=== PATIENT | female | born 1955 | race Asian ===

== ENCOUNTER 2017-04-28 16:25 | Emergency (ER) | payer MEDICAID ==
[~2017-04-28] VITALS: Ht 149.9 cm; Wt 54.5 kg
[2017-04-28] MEDS ORDERED: ASPI-1182 PO (17:00)
[2017-04-28] MEDS ORDERED: AMLO5TAB66 PO (17:00)
[2017-04-28] MEDS ORDERED: LISI-622 PO (17:00)
[2017-04-28] MEDS ORDERED: ATEN25TA PO (17:00)
[2017-04-28] MEDS ORDERED: ATOR10TA69 PO (17:00)
[2017-04-28] MEDS ORDERED: TELM1TAB25 PO (17:00)
[2017-04-28] MEDS ORDERED: PANT40TA25 PO (17:00)
[2017-04-28] MEDS ORDERED: METF850T2 PO (17:00)
[2017-04-28] MEDS ORDERED: HYDROCODONE/ACETAMINOPHEN 5-325 MG TABLET PO ONE (18:45)
[2017-04-28 19:59] VITALS: BP 111/68
[2017-04-28] MEDS ORDERED: ONDANSETRON HCL 4 MG/2 ML VIAL IM ONE (20:15)
[2017-04-28 21:03] LABS: GLUCOSE,POINT OF CARE 164 MG/DL (70-110)
== END 2017-04-28 20:51 | disposition home or self-care (01) ==
LOC: EMS 16:27
DX: S73.101A Unspecified sprain of right hip, initial encounter (principal); E11.9 Type 2 diabetes mellitus without complications; I10 Essential (primary) hypertension; E78.5 Hyperlipidemia, unspecified; X58.XXXA Exposure to other specified factors, initial encounter; Y93.89 Activity, other specified; Y92.89 Other specified places as the place of occurrence of the external cause; Y99.8 Other external cause status
CPT/HCPCS: 73502; 82962; 96372; 99284; J2405